=== PATIENT | female | born 1990 | race Caucasian/White ===

== ENCOUNTER 2019-05-08 16:59 | Inpatient (IN) | payer OTHER ==
[~2019-05-08] VITALS: Ht 162.5 cm; Wt 56.5 kg
--- NOTE | ~2019-05-08 | EKG ---
[place], [place] ELECTROCARDIOGRAM REPORT NAME: ESSIE BRASWELL UNIT #: [id number] ROOM: 401 DOCTOR: MODESTO DRAFT REPORT BIRTHDATE: [birth year] [facility] Test Date: 2019-05-08 Test Time: 18:22:44 Pat Name: ESSIE BRASWELL Department: Room: [facility] 1 Gender: F Rn Bone Marrow Transplant: Aubree Marrufo : 1990 Requested By: HUNTER HARRIS Order Number: [id number] Reading MD: Chepe Cole MD Measurements Intervals [place] Rate: 56 P: -81 VA: 101 QRS: 114 QRSD: 103 T: 83 QT: 437 QTc: 422 Interpretive Statements Ectopic atrial rhythm Short VA interval IRBBB Nonspecific T abnormalities, lateral leads Baseline wander in lead(s) I,II,aVR,aVF No previous ECG available for comparison Electronically Signed On 05-09-2019 17:31:00 PDT by Chepe Cole MD CM:EKGRPT:ELECTROCARDIOGRAM REPORT [id number] HUNTER SALVADOR DRAFT REPORT HUNTER HARRIS
--- NOTE | 2019-05-08 17:56 | NUR ---
PATIENT MEETS [facility]. CINA=17,CIWA(B)=26. PATIENT IS GOING TO [facility] FOR RESIDENTIAL TREATMENT AFTER DISCHARGE. [place] STAFF WILL SET UP TRANSPORTATION THROUGH HER INSURANCE. MARJAN BULL B.A. HYDROLOGIC MODELER
--- NOTE | 2019-05-08 18:07 | NUR ---
29 year old FEMALE admitted to room # 401-1 for stabilization. Reports an addiction to HEROIN, XANAX, COCAINE last used 48 hours prior to admission. Compliant with admission procedure. Patient denies any anxiety, but is unable to sit still, taps toes to floor continuously, looks about room, unable to focus eyes on nurse during interview. See assessment forms for additional information about patient status.
[2019-05-08 18:32] VITALS: BP 127/67
[2019-05-08 18:55] LABS: BASO % 0.4 % (0.0-1.0); EOS # 0.1 10*3/uL (0.0-0.4); EOS % 1.2 % (1.0-4.0); HEMATOCRIT 41.8 % (37.0-47.0); HEMOGLOBIN 13.2 g/dl (12.0-16.0); LYMPH # 1.8 10*3/uL (1.3-4.4); LYMPH % 25.7 % (27.0-41.0); MEAN CELL VOLUME 88.2 fl (81.0-99.0); MEAN CORPUSCULAR HGB 27.8 pg (27.0-31.0); MEAN CORPUSCULAR HGB CONC 31.6 g/dl (33.0-37.0); MEAN PLATELET VOLUME 9.3 fl (9.6-12.3); MONO # 0.6 10*3/uL (0.1-1.0); NEUT # 4.4 10*3/uL (2.3-7.9); NEUT % 63.4 % (47.0-73.0); PLATELET COUNT AUTOMATED 340 10*3/uL (130-400); RED BLOOD COUNT 4.74 10*6/uL (4.10-5.10); RED CELL DISTRI WIDTH 13.7 % (0-14.5); WHITE BLOOD COUNT 6.9 10*3/uL (4.8-10.8)
[2019-05-08 19:12] LABS: ALBUMIN 3.3 gm/dl (3.1-4.5); ALKALINE PHOSPHATASE 66 U/L (45-117); BUN 8 mg/dl (7-24); CHLORIDE 108 mmol/L (98-107); CREATININE 0.64 mg/dL (0.55-1.02); POTASSIUM 3.3 mmol/L (3.5-5.1); SGOT/AST 28 IU/L (3-35); SGPT/ALT 22 U/L (12-78); SODIUM 139 mmol/L (136-145)
[2019-05-08 19:13] LABS: ETHYL ALCOHOL < 3.0 mg/dl (<3)
[2019-05-08 19:29] LABS: INTERNATIONAL NORM RATIO 0.9 (2.0-3.5)
--- NOTE | 2019-05-08 19:47 | NUR ---
PT NOTIFIED OF UA TO UC & UDS NEEDED. HAT FOR TOILET AND CUP PROVIDED. PT VERBALIZES UNDERSTANDING.
[2019-05-08 20:00] VITALS: BP 105/70
--- NOTE | 2019-05-08 20:18 | NUR ---
URINE SAMPLE COLLECTED & SENT TO LAB. LACTATION COORDINATOR APPLIED PER ORDER.
[2019-05-08 20:27] LABS: BILIRUBIN NEGATIVE (NEGATIVE); BLOOD NEGATIVE (NEGATIVE); CLARITY CLOUDY (CLEAR); COLOR YELLOW (YELLOW); GLUCOSE NEGATIVE (NEGATIVE); KETONE NEGATIVE (NEGATIVE); LEUKO ESTERASE NEGATIVE (NEGATIVE); NITRITE NEGATIVE (NEGATIVE); PH 7.5 (5.0-9.0); SPECIFIC GRAVITY 1.015 (1.005-1.030)
--- NOTE | 2019-05-08 20:28 | NUR ---
PT MEDICATED WITH SCHEDULED PO LIBRIUM AND SL SUBUTEX PER ORDER HCG RESULTED NEGATIVE. NICOTINE PATCH ALSO APPLIED TO L UPPER ARM. PT DENIES ANY NEEDS AT THIS TIME.
[2019-05-08 20:35] LABS: BACTERIA 1+; EPITHELIAL CELLS 21-30
[2019-05-08 20:43] LABS: URINE AMPHETAMINES > 1000 (1000ng/ml); URINE BARBITURATES < 200 (200ng/ml); URINE BENZODIAZEPINES > 200 (200ng/ml); URINE CANNABINOIDS (THC) > 50 (50ng/ml); URINE COCAINE < 300 (300ng/ml); URINE METHADONE < 300 (300ng/ml); URINE OPIATES > 300 (300ng/ml); URINE PHENCYCLIDINE < 25 (25ng/ml)
--- NOTE | 2019-05-08 20:50 | NUR ---
NOTIFIED OF PATIENT'S REQUEST FOR NICOTROL INHALER. NEW ORDER RECEIVED.
[2019-05-09] VITALS: BP 130/65
--- NOTE | 2019-05-09 01:55 | NUR ---
NICOTINE PATCH REMOVED FROM L UPPER ARM PT WISHES TO TRY NICOTROL INHALER.
--- NOTE | 2019-05-09 02:30 | NUR ---
PT STATES NICOTROL INHALER MORE EFFECTIVE FOR HER CRAVINGS THAN PATCH. WILL CONTINUE TO MONITOR.
[2019-05-09 03:30] VITALS: BP 112/60
--- NOTE | 2019-05-09 03:36 | NUR ---
SCHEDULED SL SUBUTEX ADMINISTERED AT THIS TIME PER ORDER. WILL MONITOR. CALL LIGHT LEFT IN REACH. PT DENIES ANY OTHER NEEDS.
[2019-05-09 12:00] VITALS: BP 110/50
--- NOTE | 2019-05-09 13:54 | NUR ---
[place] STAFF SENT PATIENT'S ASSESSMENT TO [facility]. SPOKE WITH FACILITY AND THEY STATED THAT THEY HAVE A BED AVAILABLE FOR TUESDAY, . [place] STAFF WILL SET UP TRANSPORTATION THROUGH PATIENT'S INSURANCE. MARJAN BULL B.A. [employer] ADMINISTRATOR
[2019-05-09 16:00] VITALS: BP 128/61
[2019-05-09 20:00] VITALS: BP 123/69
--- NOTE | 2019-05-09 21:54 | NUR ---
PATIENT C/O RESTLESSNESS, MUSCLE ACHES, ANXIETY, AND SOMETHING FOR SLEEP.REQUIP, ROBAXIN, VISTARIL, AND TRAZODONE ADMINISTERED PRESCRIBED. WILL MONITOR FOR EFFECTIVENESS.
[2019-05-10] VITALS: BP 101/66
--- NOTE | 2019-05-10 | NUR ---
PATIENT RESTING WITH EYES CLOSED.RESPIRATIONS EASY AND UNLABORED. CALL LIGHT WITHIN REACH.WILL MONITOR.
--- NOTE | 2019-05-10 04:26 | NUR ---
PATIENT RESTING WITH EYES CLOSED AT THIS TIME. RESPIRATIONS EASY AND UNLABORED. WOKE UP EASILY FOR SCHEDULED MEDICATION. PATIENT HAS NO COMPLAINTS AT THIS TIME. WILL MONIOR.
[2019-05-10 08:00] VITALS: BP 113/55
--- NOTE | 2019-05-10 09:24 | NUR ---
DOCULAX SUPP PER REQUEST FOR CONSTIPATION X 7 DAYS
--- NOTE | 2019-05-10 12:00 | NUR ---
DOCULAX SUPP HAS BEEN EFFECTIVE FOR RELIEF OF CONSTIPATION
--- NOTE | 2019-05-10 14:39 | NUR ---
FIRST JANNA INFUSING AT 15CC WITHOUT DIFFICULITY
--- NOTE | 2019-05-10 15:15 | NUR ---
PATIENT IS SCHEDULED TO GO TO [facility] ON May BY 2:00PM. [place] STAFF WILL SET UP TRANSPORTAION THROUGH HER INSURANCE. MARJAN BULL B.A. PHYSICIAN EXTENDER
[2019-05-10 16:00] VITALS: BP 101/52
--- NOTE | 2019-05-10 21:50 | NUR ---
PATIENT REQUESTING MEDICATION FOR MUSCLE ACHES, HEADACHE, RESTLESSNESS, AND ANXIETY. ROBAXIN, REQUIP, MOTRIN, AND VISTARIL ADMINISTERED PRESCRIBED. WILL MONITOR FOR EFFECTIVENESS.
--- NOTE | 2019-05-10 22:50 | NUR ---
PATIENT RESTING WITH EYES CLOSED. RESPIRATIONS EASY AND UNLABORED.CALL DOSS WITHIN REACH. WILL MONITOR.
[2019-05-11] VITALS: BP 101/48
--- NOTE | 2019-05-11 03:45 | NUR ---
24 HR chart check completed.
[2019-05-11 08:00] VITALS: BP 114/56
--- NOTE | 2019-05-11 13:00 | NUR ---
Discharge instructions reviewed with patient. Patient receptive and verbalizes understanding. Follow-up care arranged. Written instructions given to patient. LORI BRAUN
--- NOTE | 2019-05-11 13:15 | NUR ---
Pt called [facility] and they said ride is set up and they will meet pt out front. Pt notified me of this and states she is leaving at this time. Pt walked out in care of self with belongings.
== END 2019-05-11 13:15 | disposition home or self-care (01) | DRG 773 ==
LOC: 4E 16:59 → EDHOLD 16:59 → 4E 17:07
PROVIDERS: Student in an Organized Health Care Education/Training Program; ADMIT Internal Medicine
DX: F11.23 Opioid dependence with withdrawal (principal); F13.10 Sedative, hypnotic or anxiolytic abuse, uncomplicated; F17.210 Nicotine dependence, cigarettes, uncomplicated; R00.1 Bradycardia, unspecified; F14.10 Cocaine abuse, uncomplicated; F15.10 Other stimulant abuse, uncomplicated; F41.9 Anxiety disorder, unspecified; F32.9 Major depressive disorder, single episode, unspecified; R10.13 Epigastric pain; R00.0 Tachycardia, unspecified; E87.6 Hypokalemia; E87.8 Other disorders of electrolyte and fluid balance, not elsewhere classified; Z90.721 Acquired absence of ovaries, unilateral; Z83.3 Family history of diabetes mellitus; Z81.1 Family history of alcohol abuse and dependence